=== PATIENT | female | born 2000 | race Two or more races ===

== ENCOUNTER 2020-12-04 13:00 | Emergency (ER) | payer OTHER ==
[~2020-12-04] VITALS: Ht 160 cm; Wt 44.9 kg
[2020-12-04] MEDS ORDERED: PRENATAL + DHA1 EAC1 PO (13:23)
== END 2020-12-04 17:45 | disposition home or self-care (01) ==
LOC: ER 13:00
DX: O26.892 Other specified pregnancy related conditions, second trimester (principal); Z3A.21 21 weeks gestation of pregnancy; R10.9 Unspecified abdominal pain

== ENCOUNTER 2021-02-13 19:45 | Outpatient (CLI) | payer OTHER ==
[~2021-02-13 19:45] MED LIST: PRENATAL + DHA1 EAC1 PO
== END 2021-02-14 15:44 | disposition home or self-care (01) ==
LOC: OBS/DEL 19:45
PROVIDERS: ATTEND Obstetrics & Gynecology
DX: O46.8X3 Other antepartum hemorrhage, third trimester (principal); Z3A.29 29 weeks gestation of pregnancy; Z20.822 Contact with and (suspected) exposure to COVID-19

== ENCOUNTER → 2021-04-05 | Outpatient (CLI) | payer OTHER | END | disposition left against medical advice (07) | LOC: OBS/DEL 18:42 | PROVIDERS: ATTEND Obstetrics & Gynecology | DX: O60.03 Preterm labor without delivery, third trimester (principal); Z3A.37 37 weeks gestation of pregnancy; Z53.29 Procedure and treatment not carried out because of patient's decision for other reasons ==

== ENCOUNTER 2021-04-09 03:23 | Inpatient (IN) | payer OTHER ==
[~2021-04-09] VITALS: Ht 160 cm; Wt 52.2 kg
== END 2021-04-11 13:15 | disposition home or self-care (01) | DRG 807 ==
LOC: OBS/DEL 03:23 → OB/GYN 08:24 → LDR 08:24 → OB/GYN 17:19
PROVIDERS: ADMIT Obstetrics & Gynecology; ATTEND Obstetrics & Gynecology
PROC: 10E0XZZ Delivery of Products of Conception, External Approach (ICD-10-PCS; principal; 2021-04-09)
PROC: 0KQM0ZZ Repair Perineum Muscle, Open Approach (ICD-10-PCS; 2021-04-09)
PROC: 4A1HXCZ Monitoring of Products of Conception, Cardiac Rate, External Approach (ICD-10-PCS; 2021-04-09)
DX: O70.1 Second degree perineal laceration during delivery (principal); Z37.0 Single live birth; Z3A.37 37 weeks gestation of pregnancy; Z20.822 Contact with and (suspected) exposure to COVID-19